=== PATIENT | female | born 1980 | race Two or more races ===

== ENCOUNTER 2018-04-29 16:19 | Emergency (ER) | payer OTHER ==
[~2018-04-29] VITALS: Ht 162.6 cm; Wt 120.0 kg
[2018-04-29] MEDS ORDERED: ONDANSETRON 2MG/ML, 2ML IVPush ONE (17:00)
[2018-04-29] MEDS ORDERED: OXYcodone IR 5MG TABLET PO ONE (17:00)
[2018-04-29] MEDS ORDERED: OXYcodone IR 5MG TABLET ONE (17:00)
[2018-04-29] MEDS ORDERED: SODIUM CHLORIDE FLUSH 10ML SYR IVF ONE (17:00)
[2018-04-29] MEDS ORDERED: MORPHINE SULFATE 4 MG/ML, 1ML IVPush PRN (17:00)
[2018-04-29 18:25] VITALS: BP 151/83
== END 2018-04-29 18:28 | disposition home or self-care (01) ==
LOC: ED 18:22
DX: M25.561 Pain in right knee (principal); I10 Essential (primary) hypertension; F17.200 Nicotine dependence, unspecified, uncomplicated; E11.9 Type 2 diabetes mellitus without complications; Z88.6 Allergy status to analgesic agent
CPT/HCPCS: 99284